=== PATIENT | female | born 1990 | race Caucasian/White ===

== ENCOUNTER 2021-07-25 09:32 | Outpatient (CLI) | payer OTHER, SELFPAY ==
--- NOTE | 2021-07-25 11:00 | NEURO_ITS ---
Impression: # Complains of pain and numbness of lower extremities. # Asymmetrical motor and sensory neuropathy. # Needle/EMG exam revealed decreased motor unit potientials. # Clinical correlation recommended; Findings suggestive of axonal/demyelinating neuropathy. Nerve Conduction Studies Anti Sensory Summary Table Stim Site NR Peak (ms) P-T Amp (?V) Site1 Site2 Delta-P (ms) Dist (cm) [place] (m/s) Left Sup Fibular Anti Sensory (Ant Lat Mall) NO RESPONSE 14 cm NR 14 cm Ant Lat Mall 16.0 Right Sup Fibular Anti Sensory (Ant Lat Mall) NO RESPONSE 14 cm NR 14 cm Ant Lat Mall 16.0 Left Sural Anti Sensory (Lat Mall) Calf 4.2 15.5 Calf Lat Mall 4.2 16.0 38 Right Sural Anti Sensory (Lat Mall) Calf 4.3 13.9 Calf Lat Mall 4.3 16.0 37 Motor Summary Table Stim Site NR Onset (ms) O-P Amp (mV) Site1 Site2 Delta-0 (ms) Dist (cm) [place] (m/s) Left Peroneal Motor (Vastus Med) Ankle 4.5 0.5 Popit Ankle 9.0 36.0 40 Popit 13.5 0.5 Right Peroneal Motor (Vastus Med) Ankle 4.8 0.9 Popit Ankle 9.5 36.0 38 Popit 14.3 0.8 Left Tibial Motor (Abd Saucedo Brev) Ankle 4.9 3.0 Knee Ankle 10.2 42.0 41 Knee 15.1 2.1 Right Tibial Motor (Abd Saucedo Brev) Ankle 5.2 3.3 Knee Ankle 10.4 38.0 37 Knee 15.6 1.1 F Wave Studies NR F-Lat (ms) L-R F-Lat (ms) Left Peroneal (Mrkrs) (EDB) 56.77 0.32 Right Peroneal (Mrkrs) (EDB) 56.45 0.32 Left Tibial (Mrkrs) (Abd Hallucis) 56.75 0.58 Right Tibial (Mrkrs) (Abd Hallucis) 56.17 0.58 EMG Side Muscle Nerve Root Ins Act Fibs Amp Dur Recrt Comment Right AntTibialis Dp Br Fibular L4-5 Nml Nml Nml Nml Reduced Right Gastroc Tibial S1-2 Nml Nml Nml Nml Nml Right Fibularis Long Sup Br Fibular L5-S1 Nml Nml Nml Nml Reduced Right Flex Dig Long Tibial L5-S2 Nml Nml Nml Nml Reduced Right Ext Dig Brev Dp Br Fibular L5, S1 Nml Nml Nml Nml Reduced Left AntTibialis Dp Br Fibular L4-5 Nml Nml Nml Nml Reduced Left Gastroc Tibial S1-2 Nml Nml Nml Nml Nml Left Fibularis Long Sup Br Fibular L5-S1 Nml Nml Nml Nml Reduced Left Flex Dig Long Tibial L5-S2 Nml Nml Nml Nml Reduced Left Ext Dig Brev Dp Br Fibular L5, S1 Nml Nml Nml Nml Reduced Right QuadratusFem QuadFemoris L4-5, S1 Nml Nml Nml Nml Reduced Left QuadratusFem QuadFemoris L4-5, S1 Nml Nml Nml Nml Reduced MTDD
== END 2021-07-25 09:33 | disposition home or self-care (01) ==
LOC: ANHNEURO 09:34
PROVIDERS: PCP Nurse Practitioner Family; Visit Provider Nurse Practitioner Family
DX: M79.661 Pain in right lower leg (principal)
CPT/HCPCS: 95886; 95910